=== PATIENT | female | born 1960 | race Caucasian/White ===

== ENCOUNTER 2016-12-05 21:01 | Emergency (ER) | payer BC ==
[2016-12-06 00:38] LABS: HEMOGLOBIN 13.1 gm/dl (12.3-15.3); RED BLOOD COUNT 4.27 M/UL (4.00-5.10); WHITE BLOOD COUNT 7.7 K/UL (4.5-11.0)
[2016-12-06 01:19] LABS: BUN/CREATININE RATIO 17 (0-10)
== END 2016-12-06 02:32 | disposition home or self-care (01) ==
LOC: ER1 21:01
PROVIDERS: Emergency Medicine
DX: R10.9 Unspecified abdominal pain (principal)
CPT/HCPCS: 36415; 80053; 81001; 82550; 82553; 83605; 83690; 83874; 84484; 84703; 85025; 87086; 93005; 99284